=== PATIENT | male | born 1935 | race Caucasian/White ===

== ENCOUNTER 2016-05-01 17:07 | Inpatient (IN) | payer MEDICARE, OTHER ==
[~2016-05-01] VITALS: Ht 170.2 cm; Wt 93.0 kg
--- NOTE | 2016-05-01 17:30 | NUR ---
RN INITIAL NOTE RECEIVED PT IN NO ACUTE DISTRESS IN BED. PT IS A/O X 4 AND ABLE TO MAKE NEEDS KNOWN. PT IS ON O2 VIA NC @ 2LPM AND TOLERATING WELL WITH O2 SAT @ 98%. PT HAS RAC 20G THAT IS CLEAN DRY INTACT AND PATENT WITH SALINE LOCK. PT DENIES ANY SOB, DIFFICULTY BREATHING OR PAIN AT THIS TIME. PT HAS F/C THAT IS CLEAN DRY INTACT AND PATENT WITH CLEAR EDMUNDO URINE DRAINING. PT DENIES ANY NAUSEA AT THIS TIME. BED IN LOW LOCK POSITION WITH RIALS UP X 2. CALL LIGHT WITHIN REACH AND ALL SAFETY MEASURES ENSURED AND CARRIED OUT. WILL CONTINUE TO MONITOR PT.
[2016-05-01 20:00] VITALS: BP 156/87
[2016-05-01] MEDS ORDERED: MAGNESIUM HYDROXIDE 30 ML UDC PO PRN (20:00)
[2016-05-01] MEDS ORDERED: MAG HYDROX/AL HYDROX/SIMETH 30 ML UDC PO PRN (20:00)
[2016-05-01] MEDS ORDERED: ONDANSETRON HCL/PF 4 MG/2 ML VIAL IVP PRN (20:00)
[2016-05-01] MEDS ORDERED: ACETAMINOPHEN 325 MG TABLET PO PRN (20:00)
[2016-05-01] MEDS ORDERED: PANTOPRAZOLE 80 MG in IV NS 0.9% 500 ML IV SCH (20:00)
[2016-05-01] MEDS ORDERED: ZOLPIDEM TARTRATE 5 MG TABLET PO PRN (20:00)
[2016-05-01] MEDS ORDERED: Z GUARD REMEDY 2 OZ OINT TP PRN (20:00)
[2016-05-01] MEDS ORDERED: IV NS 0.9% 1,000 ML ONE (20:14)
[2016-05-01] MEDS ORDERED: IV SET PRIMARY PUMP SET 1 EA INFUS.SET MC ONE ×2 (20:15→22:03)
[2016-05-01] MEDS: IV NS 0.9% 1,000 ML IV SCH (20:32)
[2016-05-01 21:11] LABS: CREATININE 1.1 mg/dL (0.6-1.3); POTASSIUM 3.8 mmol/L (3.5-5.1)
[2016-05-01 21:15] LABS: ALBUMIN 2.7 g/dL (3.4-5.0); BILIRUBIN,DIRECT 0.1 mg/dL (0.0-0.2); BILIRUBIN,TOTAL 0.2 mg/dL (0.2-1.0); MAGNESIUM 2.3 mg/dL (1.8-2.4); TOTAL PROTEIN, SERUM 7.4 g/dL (6.4-8.2)
[2016-05-01] MEDS ORDERED: DEXTROSE 50%-WATER 50 ML DISP.SYRIN IV PRN (21:30)
[2016-05-01 21:59] LABS: BASOPHILS # (AUTO) 0.1 /CMM (0.0-0.2); BASOPHILS % (AUTO) 0.4 % (0.0-2.0); EOSINOPHILS # (AUTO) 0.5 /CMM (0.0-0.7); EOSINOPHILS % (AUTO) 3.3 % (0.0-6.0); HEMATOCRIT 39 % (39-51); HEMOGLOBIN 13.1 g/dL (13.5-17.5); LYMPHOCYTES # (AUTO) 3.7 /CMM (0.8-4.8); LYMPHOCYTES % (AUTO) 26.3 % (20.0-44.0); MEAN CORPUSCULAR HEMOGLOBIN 30 PG (26.0-33.0); MEAN CORPUSCULAR HGB CONC 33 g/dl (31.0-36.0); MEAN CORPUSCULAR VOLUME 91 fL (80-96); MONOCYTES % (AUTO) 7.2 % (2.0-12.0); NEUTROPHILS # (AUTO) 8.8 /CMM (1.8-8.9); NEUTROPHILS % (AUTO) 62.8 % (43.0-81.0); PLATELET COUNT (AUTO) 299 /CMM (150-450); RDW COEFFICIENT OF VARIATION 14.1 (11.5-15.0); RED BLOOD CELL COUNT(AUTO) 4.31 MIL/uL (4.5-6.0); WHITE BLOOD COUNT (AUTO) 14.1 K/uL (4.3-11.0)
[2016-05-01 22:00] VITALS: BP 156/87
[2016-05-01] MEDS ORDERED: PANTOPRAZOLE 40 MG VIAL ONE (22:03)
[2016-05-01] MEDS ORDERED: IV NS 0.9% 500 ML IV ONE (22:04)
[2016-05-01] MEDS: BLOOD SUGAR DIAGNOSTIC 1 EACH STRIP IN SCH (23:33)
[2016-05-02] VITALS: BP 158/73
[2016-05-02] MEDS ORDERED: BLOOD SUGAR DIAGNOSTIC 1 EACH STRIP IN SCH
[2016-05-02 00:19] LABS: HEMOGLOBIN 13.1 g/dL (13.5-17.5)
[2016-05-02] MEDS ORDERED: ALBUTEROL FS 2.5 MG/0.5 ML VIAL.NEB NEB SCH (01:30)
[2016-05-02] MEDS ORDERED: ALBUTEROL FS 2.5 MG/3 ML VIAL.NEB ONE (01:47)
[2016-05-02 04:00] VITALS: BP 153/74
[2016-05-02] MEDS: BLOOD SUGAR DIAGNOSTIC 1 EACH STRIP IN SCH ×4 (06:00→23:55)
[2016-05-02 07:11] LABS: THYROID STIMULATING HORMONE 3.319 uIU/mL (0.358-3.74)
[2016-05-02 07:13] LABS: EOSINOPHILS # (AUTO) 0.6 /CMM (0.0-0.7); EOSINOPHILS % (AUTO) 4.3 % (0.0-6.0); HEMATOCRIT 40 % (39-51); HEMOGLOBIN 12.7 g/dL (13.5-17.5); LYMPHOCYTES # (AUTO) 3.7 /CMM (0.8-4.8); LYMPHOCYTES % (AUTO) 27.9 % (20.0-44.0); MEAN CORPUSCULAR HEMOGLOBIN 30 PG (26.0-33.0); MEAN CORPUSCULAR HGB CONC 32 g/dl (31.0-36.0); MEAN CORPUSCULAR VOLUME 92 fL (80-96); MONOCYTES # (AUTO) 0.9 /CMM (0.1-1.30); NEUTROPHILS # (AUTO) 8.1 /CMM (1.8-8.9); NEUTROPHILS % (AUTO) 60.8 % (43.0-81.0); PLATELET COUNT (AUTO) 277 /CMM (150-450); RDW COEFFICIENT OF VARIATION 15.4 (11.5-15.0); RED BLOOD CELL COUNT(AUTO) 4.32 MIL/uL (4.5-6.0); WHITE BLOOD COUNT (AUTO) 13.3 K/uL (4.3-11.0)
[2016-05-02 07:16] LABS: CALCIUM, SERUM 8.6 mg/dL (8.5-10.1); POTASSIUM 3.6 mmol/L (3.5-5.1)
--- NOTE | 2016-05-02 07:20 | NUR ---
RN CLOSING NOTE PT REMAINS IN NO ACUTE DISTRESS IN BED. PT DID NOT HAVE ANY SIGNIFICANT CHANGE IN CONDITION DURING THE SHIFT. WILL ENDORSE TO AM RN FOR CONTINUITY OF CARE. PT HAD BOWEL MOVEMENT @ 0710 THAT WAS FORMED WITHOUT BLOOD.
[2016-05-02 08:00] VITALS: BP 144/76
[2016-05-02] MEDS: IV NS 0.9% 1,000 ML IV SCH (10:16)
[2016-05-02] MEDS ORDERED: LEVOFLOXACIN 750 MG /D5W 150ML 750 MG in PREMIX 1 EA IV SCH (11:30)
[2016-05-02 12:00] VITALS: BP 143/73
[2016-05-02] MEDS: PANTOPRAZOLE 80 MG in IV NS 0.9% 500 ML IV PRN (12:12)
[2016-05-02] MEDS: LEVOFLOXACIN (500MG) 500 MG TABLET PO SCH (12:17)
[2016-05-02] MEDS: ALBUTEROL FS 2.5 MG/3 ML VIAL.NEB NEB SCH ×2 (13:34→19:24)
[2016-05-02 16:00] VITALS: BP 148/73
--- NOTE | 2016-05-02 19:25 | NUR ---
RN CLOSING NOTE PT REMAINS IN NO ACUTE DISTRESS IN BED. PT DID NOT HAVE ANY SIGNIFICANT CHANGE IN CONDITION DURING THE SHIFT. WILL ENDORSE TO pm RN FOR CONTINUITY OF CARE.
--- NOTE | 2016-05-02 19:40 | NUR ---
RN NOTES RECEIVED PT AWAKE ALERT ORIENTED X 3 ABLE TO MAKE KNOWN NEEDS EPISODES OF FORGETFUL NOTED. LOVES TO COMMUNICATE WITH STAFF. NO ACUTE RESP DISTRESS ON O2 2LPM VIA NC SR HR 71 ON TELE MONITOR. IV SITE ON RAC G 20 RUNNING WITH PROTONIX DRIP @ 50 CC/HR AND NS @ 100 CC/HR INTACT AND PATENT. PLAN OF CARE INFORM TO PATIENT REGARDING EGD FOR TOMORROW AND WILL BE NPO PMN FOR PREPARATION TO THE PROCEDURE. KEPT PT CLEAN AND COMFORTABLE IN BED. CALL LIGHT KEPT WITHIN EASY REACH. NEEDS ATTENDED. OFFLOADED EXT WITH PILLOWS. WILL CONTINUE TO MONITOR.
[2016-05-02 20:00] VITALS: BP 131/72
[2016-05-03] VITALS: BP 135/63
--- NOTE | 2016-05-03 00:05 | NUR ---
RN NOTES TRANSFER AND REPORTED PATIENT CARE TO ROSEY CORDOBA FOR CONTINUITY OF CARE.
[2016-05-03 00:11] LABS: HEMOGLOBIN 10.9 g/dL (13.5-17.5)
[2016-05-03] MEDS: IV 1/2NS 1000 ML 1,000 ML IV PRN ×2 (00:15→15:05)
[2016-05-03] MEDS: PANTOPRAZOLE 80 MG in IV NS 0.9% 500 ML IV PRN (00:16)
[2016-05-03] MEDS: ALBUTEROL FS 2.5 MG/3 ML VIAL.NEB NEB SCH ×5 (01:56→19:32)
[2016-05-03 04:00] VITALS: BP 136/61
[2016-05-03] MEDS: BLOOD SUGAR DIAGNOSTIC 1 EACH STRIP IN SCH ×3 (05:34→17:57)
[2016-05-03 06:00] LABS: CALCIUM, SERUM 7.6 mg/dL (8.5-10.1); POTASSIUM 3.2 mmol/L (3.5-5.1)
[2016-05-03 06:20] LABS: BASOPHILS % (AUTO) 0.2 % (0.0-2.0); EOSINOPHILS # (AUTO) 0.8 /CMM (0.0-0.7); EOSINOPHILS % (AUTO) 6.4 % (0.0-6.0); HEMATOCRIT 34 % (39-51); HEMOGLOBIN 10.8 g/dL (13.5-17.5); LYMPHOCYTES # (AUTO) 3.9 /CMM (0.8-4.8); LYMPHOCYTES % (AUTO) 31.1 % (20.0-44.0); MEAN CORPUSCULAR HEMOGLOBIN 29 PG (26.0-33.0); MEAN CORPUSCULAR HGB CONC 32 g/dl (31.0-36.0); MEAN CORPUSCULAR VOLUME 92 fL (80-96); MONOCYTES # (AUTO) 0.8 /CMM (0.1-1.30); MONOCYTES % (AUTO) 6.5 % (2.0-12.0); NEUTROPHILS % (AUTO) 55.8 % (43.0-81.0); PLATELET COUNT (AUTO) 261 /CMM (150-450); RDW COEFFICIENT OF VARIATION 15.2 (11.5-15.0); RED BLOOD CELL COUNT(AUTO) 3.68 MIL/uL (4.5-6.0); WHITE BLOOD COUNT (AUTO) 12.6 K/uL (4.3-11.0)
[2016-05-03 06:37] LABS: INR 1.02 (0.87-1.13); PROTHROMBIN TIME 10.9 SECS (9.5-12.7)
--- NOTE | 2016-05-03 07:30 | NUR ---
RN NOTES RECEIVED REPORT FROM ROSEY CORDOBA. PT NOT IN THE ROOM, CURRENTLY IN OR FOR EGD.
--- NOTE | 2016-05-03 07:56 | NUR ---
RN NOTES PT CAME BACK FROM OR, PER EMERGENCY PHYSICIAN REPORT PT REFUSED EGD
[2016-05-03 08:00] VITALS: BP 142/64
[2016-05-03] MEDS: LEVOFLOXACIN (500MG) 500 MG TABLET PO SCH (11:17)
[2016-05-03 12:00] VITALS: BP 127/76
[2016-05-03] MEDS: POTASSIUM CHLORIDE 20 MEQ POWDER PACKET PO SCH ×2 (12:30→13:51)
--- NOTE | 2016-05-03 13:30 | NUR ---
RN NOTES DR RENEE SPOKE WITH PT, PLAN OF CARE WAS DISCUSSED. PT AGREED TO DO EGD LISETH, MAY KEEP PT ON NPO POST MIDNIGHT. VERBALIZED UNDERSTANDING
--- NOTE | 2016-05-03 14:42 | NUR ---
RN NOTES PT WAS SEEN BY DR RENEE, PT AGREED TO PROCEED WITH EGD TOMORROW.
[2016-05-03 16:00] VITALS: BP 117/75
[2016-05-03] MEDS ORDERED: POTASSIUM CHLORIDE 20 MEQ POWDER PACKET PO ONE (17:18)
[2016-05-03] MEDS: INSULIN REGULAR, HUMAN 100 UNIT/ML 3 ML VIAL SQ PRN (18:06)
--- NOTE | 2016-05-03 18:55 | NUR ---
RN CLOSING NOTES PT IS IN BED, SIDERAILS UP, HOB ELEVATED 35 DEGREES, NO SI/SX OF DISTRESS NOTED, NO RESPIRATORY DISTRESS. IV FLUIDS INFUSING AT 75 ML/HR, IV SITES PATENT, NO S/SX OF INFECTION/INFILTRATION NOTED. ALL MEDS GIVEN ORDERED, PT TOLERATED WELL, ALL MD ORDERS CARRIED OUT. SAFETY MEASURES MAINTAINED, CALL LIGHTS WITHIN REACH. ALL NEEDS MET.
--- NOTE | 2016-05-03 19:50 | NUR ---
RN NOTES RECEIVED PT AWAKE ALERT ORIENTED X 3 ABLE TO MAKE KNOWN NEEDS EPISODES OF FORGETFUL NOTED. COMMUNICATE WITH STAFF. NO ACUTE RESP DISTRESS ON O2 2LPM VIA NC SR HR 79 ON TELE MONITOR. IV SITE ON RAC G 20 RUNNING WITH PROTONIX DRIP @ 50 CC/HR AND NS @ 100 CC/HR INTACT AND PATENT. PLAN OF CARE INFORM TO PATIENT REGARDING EGD FOR TOMORROW AND WILL BE NPO PMN FOR PREPARATION TO THE PROCEDURE. KEPT PT CLEAN AND COMFORTABLE IN BED. CALL LIGHT KEPT WITHIN EASY REACH. NEEDS ATTENDED. OFFLOADED EXT WITH PILLOWS. WILL CONTINUE TO MONITOR.
[2016-05-03 20:00] VITALS: BP 153/91
[2016-05-03] MEDS: HYDROCODONE/APAP 5/325MG 1 EACH TABLET PO PRN (21:33)
[2016-05-03] MEDS: PANTOPRAZOLE 40 MG TABLET.DR PO SCH (21:33)
[2016-05-04] VITALS: BP 157/68
--- NOTE | 2016-05-04 00:15 | NUR ---
RN NOTES MD VISITED INFORMED ABOUT THE PATIENT STATUS. WITH ORDER AMBIEN 5 MG PO QHS PRN FOR INABILITY TO SLEEP. NOTED AND ACKNOWLEDGE ORDER.
[2016-05-04] MEDS ORDERED: ZOLPIDEM TARTRATE 5 MG TABLET PO PRN (00:30)
[2016-05-04] MEDS: ALBUTEROL FS 2.5 MG/3 ML VIAL.NEB NEB SCH ×4 (00:50→19:36)
[2016-05-04 04:00] VITALS: BP 154/65
[2016-05-04] MEDS: BLOOD SUGAR DIAGNOSTIC 1 EACH STRIP IN SCH ×4 (05:50→17:29)
[2016-05-04] MEDS: IV 1/2NS 1000 ML 1,000 ML IV PRN (05:52)
--- NOTE | 2016-05-04 07:00 | NUR ---
RN NOTES received pt in bed.no s/s of distress.no c/o pain.breathing even and unlabored.call light within reach.all needs met in a timely manner
[2016-05-04 07:12] LABS: CALCIUM, SERUM 8.6 mg/dL (8.5-10.1); CREATININE 0.9 mg/dL (0.6-1.3); POTASSIUM 3.7 mmol/L (3.5-5.1)
--- NOTE | 2016-05-04 07:12 | NUR ---
RN NOTES PT WAS RESTLESS AND WANNA GO HOME TODAY, WHEN AWAKE PT EASILY FORGETS AND KEEP PRESSING THE CALL LIGHT. NEEDS ATTENDED BUT PT SUDDENLY FORGET AND REPEATEDLY ASKING SAME QUESTION HEALTH TEACHING MADE, TIME ORIENTATION RENDERED. ALL DUE MEDICINE TOLERATED WELL. AFEBRILE. VS STABLE. REMINDED NOT TO EAT OR DRINK AND ENCOURAGED TO AGREED FOR EGD TODAY. KEPT PT CLEAN AND DRY . ENDORSED CONTINUITY OF CARE TO AM NURSE AND PREPARATION FOR PROCEDURE.
[2016-05-04 08:00] VITALS: BP 175/81
[2016-05-04] MEDS: PANTOPRAZOLE 40 MG TABLET.DR PO SCH ×2 (08:42→20:17)
[2016-05-04 12:00] VITALS: BP 166/81
[2016-05-04] MEDS: LEVOFLOXACIN (500MG) 500 MG TABLET PO SCH (12:41)
--- NOTE | 2016-05-04 14:08 | NUR ---
PATIENT IS ANGRY AND REFUSED RESPIRATORY TREATMENT. NURSE(ARDEN) AWARE.
[2016-05-04 17:34] VITALS: BP 168/83
[2016-05-04] MEDS: HYDROCODONE/APAP 5/325MG 1 EACH TABLET PO PRN (18:10)
[2016-05-04 18:19] LABS: APPEARANCE,URINE SL CLOUDY (CLEAR); BILIRUBIN,URINE NEGATIVE (NEGATIVE); BLOOD, URINE 2+ Ery/uL (NEGATIVE); COLOR,URINE YELLOW (YELLOW); KETONES,URINE TRACE (NEGATIVE); LEUKOCYTE ESTERASE ,URINE 2+ (NEGATIVE); NITRITE, URINE NEGATIVE (NEGATIVE); PH,URINE 7.5 (5.0-8.0); PROTEIN,URINE 2+ mg/dl (NEGATIVE); UGLUCOSE 1+ mg/dL (NEGATIVE); UROBILINOGEN,URINE 0.2 EU/dL (0.2)
[2016-05-04 18:47] LABS: ADD URINE CULTURE YES; BACTERIA,URINE Moderate /HPF (None Seen); SQUAMOUS EPITHELIAL CELL,UR Few /HPF (None Seen); URINE AMORPHOUS PHOSPHATES Moderate /HPF (None Seen); WBC,URINE 81-100 /HPF (0-3)
--- NOTE | 2016-05-04 19:30 | NUR ---
RN INITIAL NOTES RECEIVED PATIENT AWAKE ALERT ORIENTED X 2, WITH PERIODS OF FORGETFULNESS. BREATHING EVEN AND NONLABORED, NO ACUTE RESPIRATORY DISTRESS NOTED WHILE ON O2 2LPM VIA NC. IV SITE ON RAC #20G WITH 1/2 NS @ 75CC/HR, SITE INTACT AND PATENT, FLUSHED WITH NS, FREE FROM ANY S/S OF INFILTRATION OR PHLEBITIS. CALL LIGHT LEFT WITHIN EASY REACH, BED IN LOWEST AND LOCKED POSITION. WILL CONTINUE TO CLOSELY MONITOR THE PATIENT
[2016-05-04 20:00] VITALS: BP 148/72
[2016-05-05] MEDS: INSULIN REGULAR, HUMAN 100 UNIT/ML 3 ML VIAL SQ PRN ×4 (00:05→18:20)
[2016-05-05] MEDS: BLOOD SUGAR DIAGNOSTIC 1 EACH STRIP IN SCH ×4 (00:05→18:14)
[2016-05-05] MEDS ORDERED: SECONDARY IV SET 1 EA INFUS.SET MC ONE (00:10)
[2016-05-05] MEDS: IV 1/2NS 1000 ML 1,000 ML IV PRN (01:12)
[2016-05-05] MEDS: ALBUTEROL FS 2.5 MG/3 ML VIAL.NEB NEB SCH ×3 (01:30→13:03)
[2016-05-05 04:00] VITALS: BP 168/77
--- NOTE | 2016-05-05 07:00 | NUR ---
RN CLOSING NOTES PATIENT ENDORSED TO THE AM SHIFT NURSE FOR EKTA. NO ACUTE EVENTS OCCURRED OVERNIGHT
[2016-05-05 07:18] LABS: CALCIUM, SERUM 8.8 mg/dL (8.5-10.1); CREATININE 0.9 mg/dL (0.6-1.3)
[2016-05-05 08:00] VITALS: BP 176/100
[2016-05-05] MEDS: PANTOPRAZOLE 40 MG TABLET.DR PO SCH (08:23)
[2016-05-05] MEDS ORDERED: LOSARTAN POTASSIUM 50 MG TABLET PO SCH (11:00)
[2016-05-05] MEDS: LEVOFLOXACIN (500MG) 500 MG TABLET PO SCH (11:54)
[2016-05-05 16:00] VITALS: BP 154/76
--- NOTE | 2016-05-05 19:00 | NUR ---
RN NOTES PT DISCHARGED BACK TO [facility], VIA AMBULANCE, EXIT CARE DONE, PRESCRIPTION GIVEN, DISCHARGE INSTRUCTION GIVEN TO PT, SIGNED BY PT, GARZA IN PLACE, SKIN INTACT, IV REMOVED, ID BAND REMOVED, BELONGINGS PROVIDED TO PT, PT LEFT IN STABLE CONDITION.
== END 2016-05-05 21:00 | DRG 377 ==
LOC: TELE-TD 17:27 → TELE1 05-02 11:47 → MEDSG1 05-04 15:50
PROVIDERS: ADMIT Student in an Organized Health Care Education/Training Program; ATTEND Student in an Organized Health Care Education/Training Program
DX: K27.4 Chronic or unspecified peptic ulcer, site unspecified, with hemorrhage (principal); J18.9 Pneumonia, unspecified organism; J44.0 Chronic obstructive pulmonary disease with (acute) lower respiratory infection; J98.11 Atelectasis; E11.9 Type 2 diabetes mellitus without complications; Z87.891 Personal history of nicotine dependence; E66.01 Morbid (severe) obesity due to excess calories; F03.90 Unspecified dementia, unspecified severity, without behavioral disturbance, psychotic disturbance, mood disturbance, and anxiety; I10 Essential (primary) hypertension; K80.20 Calculus of gallbladder without cholecystitis without obstruction; Z87.442 Personal history of urinary calculi; J44.9 Chronic obstructive pulmonary disease, unspecified
CPT/HCPCS: 36415; 71010-TC; 80048-TC; 80061-TC; 80076-TC; 81000-TC; 82962-TC; 83735-TC; 84443-TC; 85025-TC; 85027-TC; 85610-TC; 85730-TC; 86850-TC; 87040-TC; 87081-TC; 87086-TC; 94799-TC; A4216; C9113; J1815; J1956; J3490; J7030; J7040; Z7610